=== PATIENT | male | born 1975 | race Caucasian/White ===

== ENCOUNTER 2018-11-16 14:21 | Emergency (ER) | payer SELFPAY ==
[2018-11-16 14:22] VITALS: BP 159/101; PULSE 84; RESP 16; TEMP 37.2; O2SAT 96; BMI 26.8
--- NOTE | 2018-11-16 14:31 | VDLE_ITS ---
Reason For Study: swelling RIGHT LEFT GSV is normal. CFV is compressible, spontaneous, phasic, CFV is compressible, spontaneous, phasic, competent, and demonstrates normal competent and demonstrates normal augmentation. augmentation. FV is compressible, spontaneous, phasic, competent and demonstrates normal augmentation. POP V is compressible, spontaneous, phasic, competent and demonstrates normal augmentation. T/P Trunk is compressible. PTV is compressible. RT PerV is compressible. Procedure Exam performed portable in ED. The exam was diagnostic. A preliminary report was called and/or faxed to the pt's RN. Interpretation Summary There is no evidence of right lower extremity deep vein thrombosis. Right greater saphenous vein appears patent and compressible segmentally. Normal flow patterns left common femoral vein Ordering Physician: Jackelin Garcia Performed By: Bong Tran RVT
--- NOTE | 2018-11-16 14:32 | ED.DCSUM_ITS ---
History of Present Illness Chief Complaint: Lower Extremity Injury Detail of Chief Complaint: Right knee pain and swelling Informant: Patient Occurred: - - 2 weeks, but significantly worse in the last couple days. Mechanism/Context: - - No known injury Quality of Pain: Aching, Throbbing Current Severity: Mild Maximum Severity: Moderate Associated Symptoms: Negative for: Parasthesia, Weakness Narrative: Patient presents from the urgent care with right knee pain and swelling. Patient states he has had some mild pain for the past couple weeks, but it has significantly worsened in the past couple days. Swelling got significantly worse yesterday. He denies any known injury. Urgent care physician did note that his right lower leg was swollen significantly compared to the left and sent him in for concern of DVT. There is also thought the patient may have gout in his knee. He has had no prior injections or surgeries on this knee. He has not had fever or chills. He is able to ambulate and weight-bear. - Past Medical History (1) Hypertension Status: Chronic Past Medical History - Allergies and Home Meds Allergies/Adverse Reactions: Allergies Penicillins Allergy (Verified 11/16/18 14:22) Swelling Primary Care Physician: Melissa Arredondo NP-C [Primary Care Provider] - Prior records reviewed: Yes Past Medical History: - - Reviewed Surgical History: - - Left knee surgery Lives: With Family Review of Systems General: Denies: Chills, Fever Cardiovascular: Denies: Chest pain Respiratory: Denies: Dyspnea, Cough Musculoskeletal: Reports: Myalgias, Arthralgias Physical Exam Vital Signs/Narrative: Vital Signs Temp Pulse Resp BP Pulse Ox 11/16/18 14:22 98.9 F 84 16 159/101 H 96 Inital Vital Signs reviewed: Yes - Extremity Exam Right Knee: - - Edema noted over the anterior right knee. He does have tender ness palpation. He has decreased range of motion secondary to edema. There is not significant erythema or warmth that would be consistent with cellulitis. Right lower leg is swollen. No calf tenderness or palpable cords. Strong distal pulses are noted. He has no tenderness over the thigh or hip. General: Well nourished, Well developed Neck: Nontender Cardiovascular: Regular rate, Regular rhythm Respiratory: No distress, CTA bilaterally Abdomen: Soft, Nontender Neurological: Alert, Oriented x3 Psychological: Normal affect Diagnostic/Tx/Re-eval Venous ultrasound of the right lower extremity reveals no sign of DVT. - Medical Decision Making Test results discussed with the patient. Although he does have swelling to his knee, he does not have redness or warmth. We discussed what would typically be expected with a bacterial infection of his knee and patient agrees he does not have those signs or symptoms currently. We will treat him with prednisone, nap roxen, and [place]. ED Disposition - Plan for ED Patient: Disposition: Home or Assisted Living Instructions: Gouty Arthritis Prescriptions: Naproxen [Naprosyn] 500 mg PO BID PRN PRN #20 tablet PRN Reason: Pain Hydrocodone Bitart/Apap 5-325 [[place] 5MG-325MG] 1 tablet PO Q6H PRN PRN 3 Days #10 tablet PRN Reason: Pain Prednisone 10 mg PO UD #33 tablet Referrals: Melissa Arredondo, SECURITY STRATEGIST-C [Primary Care Provider] - 3-5 Days if not improving
[2018-11-16] MEDS: predniSONE 20 MG Tablet 60 MG PO (15:25)
[2018-11-16] MEDS: Naproxen 500 MG Tablet PO (15:25)
[2018-11-16 15:32] VITALS: RESP 18
== END 2018-11-16 15:37 | disposition home or self-care (01) ==
PROVIDERS: Emergency Provider Emergency Medicine; Family Provider Nurse Practitioner Family; PCP Nurse Practitioner Family
DX: M25.561 Pain in right knee (principal); M25.461 Effusion, right knee
CPT/HCPCS: 93971; 99283